=== PATIENT | male | born 1960 | race Caucasian/White ===

== ENCOUNTER 2022-08-29 11:49 | Emergency (ER) | payer OTHER, SELFPAY ==
[2022-08-29 12:23] LABS: Bilirubin Negative (Negative); Blood, Urine Moderate (Negative); Clarity Slightly Cloudy (Clear); Glucose, Urine (Dipstick) Negative (Negative); Ketone, Urine Negative (Negative); Leukocyte Large (Negative); Nitrite Negative (Negative); Protein, Urine (Dipstick) 30 mg/dL (Neg-Trace); Urobilinogen 0.2 mg/dL (Less than 2)
[2022-08-29 12:32] LABS: Bacteria/HPF 1+ HPF (None Seen); Squamous Epithelial 0-3 HPF (0-3); WBC/HPF Greater than 50 HPF (0-3)
[2022-08-29] MEDS ORDERED: cefTRIAXone\\ROCEPHIN 1 GM VIAL ONE (12:41)
[2022-08-29] MEDS ORDERED: Lidocaine 1% PF 5 ML VIAL ONE (12:44)
== END 2022-08-29 12:55 | disposition home or self-care (01) ==
LOC: BURERS 11:49
DX: T83.091A Other mechanical complication of indwelling urethral catheter, initial encounter (principal); N30.01 Acute cystitis with hematuria
CPT/HCPCS: 51702; 81003; 81015; 87077; 87086; 87186; 96372; J0696

== ENCOUNTER 2022-10-02 13:16 | Emergency (ER) | payer OTHER | END 2022-10-02 13:57 | disposition home or self-care (01) | LOC: BURERS 13:16 | DX: T83.011A Breakdown (mechanical) of indwelling urethral catheter, initial encounter (principal) | CPT/HCPCS: 51702 ==

== ENCOUNTER 2022-11-08 08:55 | Emergency (ER) | payer OTHER ==
[2022-11-08 11:39] LABS: Bilirubin Negative (Negative); Blood, Urine Moderate (Negative); Clarity Cloudy (Clear); Glucose, Urine (Dipstick) Negative (Negative); Ketone, Urine Negative (Negative); Leukocyte Small (Negative); Nitrite Negative (Negative); Protein, Urine (Dipstick) 30 mg/dL (Neg-Trace); Urobilinogen 0.2 mg/dL (Less than 2)
[2022-11-08 11:53] LABS: Bacteria/HPF 2+ HPF (None Seen); Squamous Epithelial 0-3 HPF (0-3); WBC/HPF 21-50 HPF (0-3)
== END 2022-11-08 11:34 | disposition home or self-care (01) ==
LOC: BURERS 08:55
DX: T83.091A Other mechanical complication of indwelling urethral catheter, initial encounter (principal); Y84.6 Urinary catheterization as the cause of abnormal reaction of the patient, or of later complication, without mention of misadventure at the time of the procedure
CPT/HCPCS: 51702; 81003; 81015; 87077; 87086; 87186

== ENCOUNTER 2022-12-06 08:50 | Emergency (ER) | payer OTHER ==
[2022-12-06 09:55] LABS: Bilirubin Negative (Negative); Blood, Urine Moderate (Negative); Clarity Cloudy (Clear); Glucose, Urine (Dipstick) Negative (Negative); Ketone, Urine Negative (Negative); Leukocyte Large (Negative); Nitrite Negative (Negative); Protein, Urine (Dipstick) 30 mg/dL (Neg-Trace); Specific Gravity, Urine 1.015 (1.005-1.030); Urobilinogen 0.2 mg/dL (Less than 2); pH, Urine 5.5 (5.0-9.0)
[2022-12-06 09:56] LABS: Bacteria/HPF 1+ HPF (None Seen); Squamous Epithelial 0-3 HPF (0-3); WBC/HPF 21-50 HPF (0-3)
== END 2022-12-06 09:40 | disposition home or self-care (01) ==
LOC: BURERS 08:50
DX: Z46.6 Encounter for fitting and adjustment of urinary device (principal)
CPT/HCPCS: 51702; 81003; 81015

== ENCOUNTER 2023-01-22 09:51 | Emergency (ER) | payer OTHER | END 2023-01-22 11:10 | disposition home or self-care (01) | LOC: BURERS 09:51 | DX: T83.091A Other mechanical complication of indwelling urethral catheter, initial encounter (principal); Y84.6 Urinary catheterization as the cause of abnormal reaction of the patient, or of later complication, without mention of misadventure at the time of the procedure | CPT/HCPCS: 51702 ==

== ENCOUNTER 2023-07-09 09:51 | Emergency (ER) | payer OTHER ==
[2023-07-09 10:33] LABS: Bilirubin Negative (Negative); Blood, Urine Moderate (Negative); Clarity Turbid (Clear); Glucose, Urine (Dipstick) Negative (Negative); Ketone, Urine Negative (Negative); Leukocyte Large (Negative); Nitrite Positive (Negative); Protein, Urine (Dipstick) > or equal to 300 mg/dL (Neg-Trace); Specific Gravity, Urine 1.025 (1.005-1.030); Urobilinogen 0.2 mg/dL (Less than 2); pH, Urine 7.5 (5.0-9.0)
[2023-07-09 10:37] LABS: Bacteria/HPF 4+ HPF (None Seen); CAUTI Indications for Culture Dysuria,urgency,freq; Squamous Epithelial 0-3 HPF (0-3); WBC/HPF Greater Than 50 HPF (0-3)
[2023-07-09 10:38] LABS: Triple Phosphate Crystal 2+ HPF (None Seen)
[2023-07-09 10:39] LABS: Urine Culture Reflex Yes Yes
== END 2023-07-09 10:34 | disposition home or self-care (01) ==
LOC: BURERS 09:51
DX: T83.091A Other mechanical complication of indwelling urethral catheter, initial encounter (principal); N39.0 Urinary tract infection, site not specified; Y84.6 Urinary catheterization as the cause of abnormal reaction of the patient, or of later complication, without mention of misadventure at the time of the procedure
CPT/HCPCS: 51702; 81001; 87086; 99283